=== PATIENT | female | born 1985 | race Hispanic/Latino ===

== ENCOUNTER 2022-02-12 16:49 | Emergency (ER) | payer OTHER ==
[2022-02-12] MEDS ORDERED: KETOROLAC TROME10 MG PO ×2 (17:44→20:03)
[2022-02-12] MEDS ORDERED: CYCLOBENZAPRINE5 MG PO ×2 (17:44→20:03)
== END 2022-02-12 18:12 | disposition home or self-care (01) ==
LOC: FSED 17:15
DX: S13.4XXA Sprain of ligaments of cervical spine, initial encounter (principal); V43.62XA Car passenger injured in collision with other type car in traffic accident, initial encounter; Y92.488 Other paved roadways as the place of occurrence of the external cause
CPT/HCPCS: 71046; 72040; 99283

== ENCOUNTER 2022-03-10 22:46 | Emergency (ER) | payer BC, OTHER ==
[~2022-03-10] VITALS: Ht 162.6 cm; Wt 70.8 kg
[~2022-03-10 22:46] MED LIST: CYCLOBENZAPRINE5 MG PO; KETOROLAC TROME10 MG PO
[2022-03-11] MEDS ORDERED: FAMOTIDINE 20 MG TAB ONE (00:35)
[2022-03-11] MEDS ORDERED: ONDANSETRON HCL 4 MG ORAL DISINTEGRATING TAB ONE (00:35)
[2022-03-11] MEDS ORDERED: ONDANSETRON ODT4 MG PO (00:57)
[2022-03-11] MEDS ORDERED: ONDANSETRON HCL 4 MG ORAL DISINTEGRATING TAB PO ONE (01:00)
[2022-03-11] MEDS ORDERED: FAMOTIDINE 20 MG TAB PO ONE (01:00)
[2022-03-11 01:05] VITALS: BP 130/76
== END 2022-03-11 01:10 | disposition home or self-care (01) ==
LOC: FSED 22:50
DX: R11.2 Nausea with vomiting, unspecified (principal); R10.13 Epigastric pain
CPT/HCPCS: 81003; 81025; 99283; Q0162